=== PATIENT | male | born 1980 ===

== ENCOUNTER 2018-06-27 13:17 | Emergency (ER) | payer SELFPAY ==
[~2018-06-27] VITALS: Ht 167.6 cm; Wt 73.0 kg
[~2018-06-27 13:17] MED LIST: ALBU17AE3 IH; ALBU8.5H4 IH; BUDE10.22 IH; PRD20T PO; SULF1TAB38 PO
--- OUTSIDE RECORDS SUMMARY | 2018-06-27 13:22 | XMS REPORT ---
Author Author TIMOTHY MATHEW Organization [facility] Address [address] [place] [address] Care Team Providers Care Entry Specialist Name Role Phone TIMOTHY MATHEW Unavailable PROBLEMS Type Condition ICD9-CM Code ARZ09-QI Code Onset Dates Condition Status SNOMED Code Problem Allergic rhinitis J30.9 Active 41561213 Problem Tobacco abuse counseling Z71.6 Active 227874883 Problem Tobacco abuse Z72.0 Active 19787480 Problem Alcohol abuse F10.10 Active 55834761 Problem Mild intermittent asthma without complication J45.20 Active 492908115 Problem History of asthma Z87.09 Active 313485195 Problem Substance abuse F19.10 Active 08369866 Problem 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 Active 040572810457816 Problem General medical exam Z00.00 Active 627502435 ALLERGIES No Known Allergies ENCOUNTERS Encounter Location Date Diagnosis [facility] [address] [address] May, Laryngitis J04.0 [facility] [address] [address] May, Mild intermittent asthma without complication J45.20 ; Allergic rhinitis J30.9 ; Alcohol abuse F10.10 ; 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 and Plantar fasciitis M72.2 [facility] [id number] [place] [address]- [address] 13 Mar, 2018 Epigastric pain R10.13 [facility] [address] [address] 07 Mar, 2016 Acute non-recurrent sinusitis, unspecified location J01.90 ; Wheezing R06.2 and Tobacco dependence F17.200 [facility] [address] [address] Sep, Seasonal allergies J30.2 ; Sore throat J02.9 and Strep throat J02.0 [facility] [id number] [place] [address]- 3144 Aug, [facility] [id number] [place] [address]- 33[address] Jul, [facility] [address] [address] Jun, General medical exam Z00.00 ; Substance abuse F19.10 ; Tobacco abuse Z72.0 ; Tobacco abuse counseling Z71.6 ; History of asthma Z87.09 and Allergic rhinitis J30.9 [facility] [id number] [place] [address]- 42[address] Jun, [facility] [address] [address] November, Allergic rhinitis, cause unspecified 477.9 ; Tobacco abuse 305.1 ; Tobacco abuse counseling V65.42 and Wheezing 786.07 [facility] [id number] [place] [address]- 0[address] November, [facility] [id number] [place] [address]- 4191 Oct, [facility] [id number] [place] [address]339- 4017 Oct, [facility] [id number] [place] [address]30- 0[address] 17 Mar, 2014 [facility] [id number] [place] [address]33- 9212 16 Mar, 2014 [facility] [id number] [place] [address] 22034- 9627 16 Mar, 2014 [facility] [id number] [place] [address]80- 12[address] 04 Mar, 2014 [facility] [address] [address] [place] [address] Mar, [facility] [place] [facility] [address] [id number] [place] [address] Feb, [facility] [place] [facility] [address] [id number] [place] [address] 2548 Feb, [facility] [place] [facility] [address] [id number] [place] [address]- 8[address] Feb, [facility] [place] [facility] [address] [id number] [place] [address] 7[address] Feb, [facility] [place] [facility] [address] [id number] [place] [address] 1576 Feb, [facility] [place] [facility] [address] [id number] [place] [address] 5183 Feb, [facility] [place] [facility] [address] [id number] [place] [address]- 7497 Dec, [facility] [place] [facility] [address] [id number] [place] [address] 2967 Dec, [facility] [place] [facility] [address] [id number] [place] [address] 1990 Dec, [facility] [place] [facility] [address] [id number] [place] [address] 18[address] Dec, [facility] [place] [facility] [address] [id number] [place] [address] 3[address] Oct, [facility] [place] [facility] [address] [id number] [place] [address] 34[address] Oct, [facility] [place] [facility] [address] [id number] [place] [address] 3[address] Sep, [facility] [place] [facility] [address] [id number] [place] [address]- 275[address] Sep, [facility] [place] [facility] [address] [id number] [place] [address]- 9192 Sep, [facility] [place] [facility] [address] [id number] [place] [address] 1478 Sep, [facility] [address] [id number] [place] [address] 5[address] Jul, [facility] [address] [id number] [place] [address] Jul, [facility] [address] [id number] [place] [address]- 0512 May, [facility] [address] [id number] [place] [address] 44[address] May, [facility] [place] [facility] [address] [id number] [place] [address]- 3505 Jan, [facility] [address] [id number] [place] [address]- 5[address] Jan, [facility] [address] [id number] [place] [address]- 98[address] Jan, [facility] [address] [id number] [place] [address]- 1536 Jan, [facility] [address] [id number] [place] [address]- 1070 Jan, [facility] [address] [id number] [place] [address]- 3230 Jan, [facility] [place] [facility] [address] [id number] [place] [address]- 4049 Dec, [facility] [place] [facility] [address] [id number] [place] [address]- 3147 November, [facility] [place] [facility] [address] [id number] [place] [address]- 0055 May, [facility] [place] [facility] [address] [id number] [place] [address]- 5755 May, [facility] [place] [facility] [address] [id number], [place] [address]46 May, [facility] [address] [facility] [id number], [place] [address] 2546 May, [facility] [address] [facility] [id number], [place] [address] 2546 Apr, [facility] [address] [facility] [id number], [place] [address]- 25[address] Apr, [facility] [address] [facility] [id number], [place] [address] 2546 Feb, [facility] [address] [facility] [id number], [place] [address] 2546 November, [facility] [address] [facility] [id number], [place] [address]- [address] Dec, IMMUNIZATIONS No Known Immunizations SOCIAL HISTORY Never Assessed REASON FOR VISIT dry throat - x2-3 days - KPacristel MA , couch without production - x4days kPage mA , sinus pressure KPage MA , after coughing has shortness of breath - doesnt feel like he can catch his breath kPage mA PLAN OF CARE Activity Details Follow Up prn Reason: VITAL SIGNS Height 66 in 2018-06-11 Weight 161.3 lbs 2018-06-11 Temperature 97.3 degrees Fahrenheit 2018-06-11 Heart Rate 104 bpm 2018-06-11 Respiratory Rate 20 2018-06-11 Oximetry on room air:98 % 2018-06-11 BMI 26.03 kg/m2 2018-06-11 Blood pressure systolic 108 mmHg 2018-06-11 Blood pressure diastolic 70 mmHg 2018-06-11 MEDICATIONS Medication Instructions Dosage Frequency Start Date End Date Duration Status Pantoprazole Sodium 40 mg Orally Once a day 1 tablet 24h Mar, 90 days Active SudoGest 60 MG Orally every 6 hrs 1 tablet as needed 6h May, 5 days Active Flonase 50 mcg/act Nasally Once a day 1 spray in each nostril 24h May, 30 day(s) Active Zyrtec Allergy 10 MG Orally Once a day 1 tablet 24h 30 day(s) Not- Taking Montelukast Sodium 10 mg Orally Once a day 1 tablet 24h May, 30 day(s) Active Seroquel 50 mg Orally at bedtime as needed for insomnia 1 tablet May, 30 day(s) Active RESULTS No Results PROCEDURES No Known procedures INSTRUCTIONS MEDICATIONS ADMINISTERED No Known Medications MEDICAL (GENERAL) HISTORY Type Description Date Medical History Asthma Surgical History Testicular Contortion 1990
--- OUTSIDE RECORDS SUMMARY | 2018-06-27 13:22 | XMS REPORT ---
Author Author QUINCY LINK Organization [facility] Address [address] [place] [address] Care Team Providers Care Tray Checker Name Role Phone QUINCY LINK Unavailable PROBLEMS Type Condition ICD9-CM Code CJL87-GO Code Onset Dates Condition Status SNOMED Code Problem Allergic rhinitis J30.9 Active 86470344 Problem Tobacco abuse counseling Z71.6 Active 157952123 Problem Tobacco abuse Z72.0 Active 65564545 Problem Alcohol abuse F10.10 Active 88674605 Problem Mild intermittent asthma without complication J45.20 Active 256494620 Problem History of asthma Z87.09 Active 209785168 Problem Substance abuse F19.10 Active 01811713 Problem 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 Active 646112432838676 Problem General medical exam Z00.00 Active 961666404 ALLERGIES No Known Allergies ENCOUNTERS Encounter Location Date Diagnosis [facility] [address] [address] May, Mild intermittent asthma without complication J45.20 ; Allergic rhinitis J30.9 ; Alcohol abuse F10.10 ; 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 [id number] [place] [address] 29 Sep, 2015 Seasonal allergies J30.2 ; Sore throat J02.9 and Strep throat J02.0 [facility] [address] [id number] [address] 11 Aug, 2015 [facility] [id number] [place] [address] 25379- 3465 Jul, [facility] [id number] [place] [address] 81626- 9616 10 Jun, 2015 General medical exam Z00.00 ; Substance abuse F19.10 ; Tobacco abuse Z72.0 ; Tobacco abuse counseling Z71.6 ; History of asthma Z87.09 and Allergic rhinitis J30.9 [facility] [id number] [place] [address] 98871- 5283 Jun, [facility] [id number] [place] [address] 14389- 7113 November, Allergic rhinitis, cause unspecified 477.9 ; Tobacco abuse 305.1 ; Tobacco abuse counseling V65.42 and Wheezing 786.07 [facility] [id number] [place] [address]181- [address] November, [facility] [id number] [place] [address] 57385- 0515 Oct, [facility] [id number] [place] [address] 20309- 9411 Oct, [facility] [address] [place] [address] 60470- 1515 17 Mar, 2014 [facility] [address] [place] [address] 64735- 8967 16 Mar, 2014 [facility] [address] [place] [address] 75317- 5697 16 Mar, 2014 [facility] [id number] [place] [address] 01775- 9340 04 Mar, 2014 [facility] [address] [address]- [address] 04 Mar, 2014 [facility] [id number] [place] [address] 18672- 5361 Feb, [facility] [place] [facility] [address] [id number] [place] [address]- 9390 Feb, [facility] [place] [facility] [address] [id number] [place] [address]- 2955 Feb, [facility] [place] [facility] [address] [id number] [place] [address]- 1847 Feb, [facility] [place] [facility] [address] [id number] [place] [address]- 3946 Feb, [facility] [place] [facility] [address] [id number] [place] [address]- 5329 Feb, [facility] [place] [facility] [address] [id number] [place] [address]- 4730 Dec, [facility] [place] [facility] [address] [id number] [place] [address]- 0282 Dec, [facility] [place] [facility] [address] [id number] [place] [address]- 6902 Dec, [facility] [place] [facility] [address] [id number] [place] [address]- 5918 Dec, [facility] [place] [facility] [address] [id number] [place] [address]- 6386 Oct, [facility] [place] [facility] [address] [id number] [place] [address]- 0018 Oct, [facility] [place] [facility] [address] [id number] [place] [address]- 5996 Sep, [facility] [place] [facility] [address] [id number] [place] [address]- 7924 Sep, [facility] [place] [facility] [address] [id number] [place] [address]- 5754 Sep, [facility] [place] [facility] [address] [id number] [place] [address]- 7117 Sep, [facility] [place] [facility] [address] [id number] [place] [address]- 2581 Jul, [facility] [address] [id number] [place] [address]- 9154 Jul, [facility] [place] [facility] [address] [id number] [place] [address]- 6479 May, [facility] [address] [id number] [place] [address]- 6692 May, [facility] [place] [facility] [address] [id number] [place] [address]- 5428 Jan, [facility] [address] [id number] [place] [address]- 2877 Jan, [facility] [place] [facility] [address] [id number] [place] [address]- 2553 Jan, [facility] [place] [facility] [address] [id number] [place] [address]- 9643 Jan, [facility] [address] [id number] [place] [address]- 9993 Jan, [facility] [place] [facility] [address] [id number] [place] [address]- 5577 Jan, [facility] [address] [id number] [place] [address]- 1730 Dec, [facility] [place] [facility] [address] [id number] [place] [address]- 9693 November, [facility] [place] [facility] [address] [id number] [place] [address]- 3004 May, [facility] [place] [facility] [address] [id number] [place] [address]- 4510 May, [facility] [place] [facility] [address] [id number] [place] [address]- 1636 May, [facility] [place] [facility] [address] [id number] [place] [address]- 7509 May, [facility] [address] [facility] [id number] [address]- 8666 Apr, [facility] [address] [facility] [id number], [place] [address]- 2546 Apr, [facility] [address] [facility] [id number], [place] [address] 2546 Feb, [facility] [address] [facility] [id number], [place] [address] 2546 November, [facility] [address] [facility] [id number] [address]- 3566 Dec, IMMUNIZATIONS No Known Immunizations SOCIAL HISTORY Never Assessed REASON FOR VISIT foot/ear c/o-twooden,RMA, PT is having some pain in his left ear and left foot. started about two weeks ago PLAN OF CARE Activity Details Follow Up prn Reason: VITAL SIGNS Height 66 in 2018-05-13 Weight 163.7 lbs 2018-05-13 Temperature 97.4 degrees Fahrenheit 2018-05-13 Heart Rate 118 bpm 2018-05-13 Respiratory Rate 20 2018-05-13 Oximetry on room air:97 % 2018-05-13 BMI 26.42 kg/m2 2018-05-13 Blood pressure systolic 104 mmHg 2018-05-13 Blood pressure diastolic 78 mmHg 2018-05-13 MEDICATIONS Medication Instructions Dosage Frequency Start Date End Date Duration Status Montelukast Sodium 10 mg Orally Once a day 1 tablet 24h May, 30 day(s) Active Pantoprazole Sodium 40 mg Orally Once a day 1 tablet 24h Mar, 90 days Active Flonase 50 mcg/act Nasally Once a day 1 spray in each nostril 24h May, 30 day(s) Active Seroquel 50 mg Orally at bedtime as needed for insomnia 1 tablet May, 30 day(s) Active Zyrtec Allergy 10 MG Orally Once a day 1 tablet 24h 30 day(s) Active RESULTS No Results PROCEDURES No Known procedures INSTRUCTIONS MEDICATIONS ADMINISTERED No Known Medications MEDICAL (GENERAL) HISTORY Type Description Date Medical History Asthma Surgical History Testicular Contortion 1990
--- OUTSIDE RECORDS SUMMARY | 2018-06-27 13:23 | XMS REPORT | Continuity of Care Document ---
Author Author [facility] Organization [facility] Address Unknown Phone Unavailable Care Team Providers Care Shade Maker Name Role Phone [facility] Insurance Providers Payer Name Policy Number Subscriber Name Relationship Self Pay Annamarie Nicholson Self / Same As Patient Advance Directives Directive Response Recorded Date Advance Directives N 12/15/12 9:47am Problems No Known Problems or Medical conditions. Social History History Response Recorded Date/Time Alcohol Use Denies Use 12/15/12 9:47am Recreational Drug Use N 12/15/12 9:47am Allergies, Adverse Reactions, Alerts Allergen Type Severity Reaction Last Updated No Known Drug Allergies 03/02/11 Medications Medication Dose Units Route Sig Qty Days Albuterol (Albuterol Sulfate Hfa) 8.5 Gm IH Q4H PRN 1 Prednisone 40 Mg PO DAILY 5 Budesonide/Formoterol Fumarate (Symbicort 80-4.5 Mcg Inhaler) 10.2 Gm IH BID Albuterol (Proventil) 1 [place] [facility] UD Response Recorded Date/Time Status not known Unknown Results No Known Relevant Diagnostic Tests, Laboratory Data and/or Discharge Summary. Encounters Encounter Location Date/Time Departed Emergency Room [facility] [place] 11/22 9:41am
--- OUTSIDE RECORDS SUMMARY | 2018-06-27 13:23 | XMS REPORT ---
Author Author PATY TRUONG Organization [employer] Address Unknown Phone Unavailable Care Team Providers Care Building Rigger Name Role Phone PATY TRUONG CP Unavailable Allergies, Adverse Reactions, Alerts Substance Reaction Event Type N.K.D.A. Info Not Available Non Drug Allergy Problems Problem Type Condition Code Onset Dates Condition Status Assessment Tobacco abuse counseling Z71.6 Active Assessment Substance abuse F19.10 Active Assessment Tobacco abuse Z72.0 Active Assessment Allergic rhinitis J30.9 Active Assessment History of asthma Z87.09 Active Problem Substance abuse F19.10 Active Problem Tobacco abuse Z72.0 Active Problem General medical exam Z00.00 Active Problem Allergic rhinitis J30.9 Active Assessment General medical exam Z00.00 Active Problem Tobacco abuse counseling Z71.6 Active Problem History of asthma Z87.09 Active Medications Medication Code System Code Instructions Start Date End Date Status Dosage Fluticasone Propionate [facility] [address]-85 50 MCG/ACT Nasally Once a day Jun 21, 2015 1 spray in each nostril Ventolin HFA [facility] [address]-78 90 MCG/ACT Inhalation every 4 hrs Jun 21, 2015 2 puffs as needed Cetirizine HCl [facility] [address]-44 10 MG Orally Jun 21, 2015 as directed Symbicort [facility] [address]-53 160-4.5 MCG/ACT Inhalation Twice a day Jun 21, 2015 2 puffs Procedures Procedure Coding System Code Date Office Visit, Est Pt., Level 3 CPT-4 76247 Jun 21, 2015 Vital Signs Date/Time: Jun 21, 2015 Temperature 97.7 F Weight 150.3 lbs Height 66 in BMI 24.26 Index Blood Pressure Diastolic 68 mmHg Blood Pressure Systolic 116 mmHg Cardiac Monitoring Heart Rate 74 bpm Results No Known Results Summary Purpose [employer] Submission
--- OUTSIDE RECORDS SUMMARY | 2018-06-27 13:23 | XMS REPORT | Continuity of Care Document ---
Author Author [facility] Address Unknown Phone Unavailable Allergies There is no data. Medications There is no data. Problems Date Dx Coded Attending Type Code Diagnosis Diagnosed By 12/26/2010 305.1 NONDEPENDENT TOBACCO USE DISORDER 12/26/2010 473.9 Unspecified Sinusitis (chronic) 12/26/2010 493.90 ASTHMA UNSPECIFIED 12/26/2010 305.1 NONDEPENDENT TOBACCO USE DISORDER 12/26/2010 473.9 Unspecified Sinusitis (chronic) 12/26/2010 493.90 ASTHMA UNSPECIFIED 12/26/2010 MAYRA RODAS APRN R 305.1 NONDEPENDENT TOBACCO USE DISORDER 12/26/2010 MAYRA RODAS APRN R 473.9 Unspecified Sinusitis (chronic) 12/26/2010 SHERRI RODAS APRNIA R 493.90 ASTHMA UNSPECIFIED 12/26/2010 DEBORAH TILLMAN APRNCY N 305.1 NONDEPENDENT TOBACCO USE DISORDER 12/26/2010 DEBORAH TILLMAN APRNCY N 473.9 Unspecified Sinusitis (chronic) 12/26/2010 JOSH WHITLEY APRN AMANDA N 493.90 ASTHMA UNSPECIFIED 12/26/2010 RAMESH NGUYEN DOA K 305.1 NONDEPENDENT TOBACCO USE DISORDER 12/26/2010 NGUYEN DO KOREY K 473.9 Unspecified Sinusitis (chronic) 12/26/2010 NGUYEN DO KOREY K 493.90 ASTHMA UNSPECIFIED 12/26/2010 NGUYEN DO KOREY K 305.1 NONDEPENDENT TOBACCO USE DISORDER 12/26/2010 NGUYEN DO KOREY K 473.9 Unspecified Sinusitis (chronic) 12/26/2010 NGUYEN DO KOREY K 493.90 ASTHMA UNSPECIFIED 12/26/2010 CADY ELMORE, MAXIMUS Cruz 305.1 NONDEPENDENT TOBACCO USE DISORDER 12/26/2010 CADY ELMORE, MAXIMUS Cruz 473.9 Unspecified Sinusitis (chronic) 12/26/2010 CADY ELMORE, MAXIMUS Cruz 493.90 ASTHMA UNSPECIFIED 12/02/2011 V65.42 COUNSELING - SMOKING CESSATION 12/02/2011 V65.42 COUNSELING - SMOKING CESSATION 12/02/2011 MAYRA RODAS APRN R V65.42 COUNSELING - SMOKING CESSATION 12/02/2011 JOSH GUTIERREZ LYONS, AMANDA N V65.42 COUNSELING - SMOKING CESSATION 12/02/2011 NGUYEN DO KOREY K V65.42 COUNSELING - SMOKING CESSATION 12/02/2011 WENDY JULIAN KOREY K V65.42 COUNSELING - SMOKING CESSATION 12/02/2011 MAXIMUS LAZAR PHD V65.42 COUNSELING - SMOKING CESSATION 12/21/2012 461.9 SINUSITIS ACUTE 12/21/2012 477.9 RHINITIS 12/21/2012 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 12/21/2012 MAYRA RODAS APRN R 461.9 SINUSITIS ACUTE 12/21/2012 MAYRA RODAS APRN R 477.9 RHINITIS 12/21/2012 MAYRA RODAS APRN R 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 12/21/2012 JOSH WHITLEY APRN, AMANDA N 461.9 SINUSITIS ACUTE 12/21/2012 MORENOCAITLYN WHITLEY APRN, AMANDA N 477.9 RHINITIS 12/21/2012 MORENO CLAUDIANIKKY LYONS, AMANDA N 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 12/21/2012 RAMESH NGUYEN DOA K 461.9 SINUSITIS ACUTE 12/21/2012 RAMESH NGUYEN DOA K 477.9 RHINITIS 12/21/2012 RAMESH NGUYEN DOA K 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 12/21/2012 MAXIMUS LAZAR PHD 461.9 SINUSITIS ACUTE 12/21/2012 MAXIMUS LAZAR PHD 477.9 RHINITIS 12/21/2012 MAXIMUS LAZAR PHD 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 01/21/2013 MAYRA RODAS APRN R V67.59 OTHER FOLLOW-UP EXAMINATION 01/21/2013 AMANDA TILLMAN APRN N V67.59 OTHER FOLLOW-UP EXAMINATION 01/21/2013 KOREY NGUYEN DO K V67.59 OTHER FOLLOW-UP EXAMINATION 01/21/2013 MAXIMUS LAZAR PHD V67.59 OTHER FOLLOW-UP EXAMINATION 01/29/2013 RODAS RELAY SHOP TESTER, MAYRA R 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03 VOMITING ALONE 02/07/2013 AMANDA TILLMAN APRN N 787.03 VOMITING ALONE 02/07/2013 KOREY NGUYEN DO 787.03 VOMITING ALONE 02/07/2013 MAXIMUS LAZAR PHD 787.03 VOMITING ALONE 05/18/2013 MAYRA RODAS APRN R 786.2 COUGH 05/18/2013 AMANDA TILLMAN APRN N 786.2 COUGH 05/18/2013 KOREY NGUYEN DO K 786.2 COUGH 05/18/2013 MAXIMUS LAZAR PHD 786.2 COUGH 07/25/2013 AMANDA TILLMAN APRN N 487.1 INFLUENZA WITH OTHER RESPIRATORY MANIFESTATIONS 07/25/2013 KOREY NGUYEN DO 487.1 INFLUENZA WITH OTHER RESPIRATORY MANIFESTATIONS 07/25/2013 MAXIMUS LAZAR PHD 487.1 INFLUENZA WITH OTHER RESPIRATORY MANIFESTATIONS 09/30/2013 KOREY NGUYEN DO 719.45 PAIN IN JOINT INVOLVING PELVIC REGION AND THIGH 09/30/2013 KOREY NGUYEN DO 789.30 ABDOMINAL OR PELVIC SWELLING MASS OR LUMP UNSPECIFIED SITE 09/30/2013 KOREY NGUYEN DO 848.8 OTHER SPECIFIED SITES OF SPRAINS AND STRAINS 09/30/2013 MAXIMUS LAZAR PHD 719.45 PAIN IN JOINT INVOLVING PELVIC REGION AND THIGH 09/30/2013 MAXIMUS LAZAR PHD 789.30 ABDOMINAL OR PELVIC SWELLING MASS OR LUMP UNSPECIFIED SITE 09/30/2013 MAXIMUS LAZAR PHD 848.8 OTHER SPECIFIED SITES OF SPRAINS AND STRAINS 02/17/2014 MAXIMUS LAZAR PHD 296.32 MO DEPRESSIVE RECURRENT MODERATE Procedures Code Description [place] [address] OXIMETRY 12/21/2012 23967 INFLUENZA A & B (IN-HOUSE) 07/25/2013 14028 XRAY HIP LEFT UNILATERAL MIN 2 VIEWS 09/30/[address] EXTREMITY, LOWER, LEFT W / AND W/O CONTRAST 09/30/2013 31431 PSYCH DIAGNOSTIC EVALUATION 02/17/2014 Results There is no data. Encounters ACCT No. Visit Date/Time Discharge Status Pt. Type Provider Facility Loc./Unit Complaint [id number] 02/17/2014 13:50:00 02/17/2014 23:59:59 CLS Outpatient MAXIMUS LAZAR PHD [id number] 09/30/2013 13:59:00 09/30/2013 23:59:59 CLS Outpatient KOREY NGUYEN DO [id number] 07/25/2013 12:38:00 07/25/2013 23:59:59 CLS Outpatient AMANDA TILLMAN APRN [id number] 05/18/2013 14:03:00 05/18/2013 23:59:59 CLS Outpatient MAYRA RODAS APRN [id number] 12/02/2011 10:38:00 12/02/2011 23:59:59 CLS Outpatient KOREY NGUYEN DO [id number] 12/21/2012 09:51:00 Document Registration [id number] 05/13/2012 09:37:00 Document Registration [id number] 10/03/2013 08:57:00 10/03/2013 23:59:59 CLS Outpatient [id number] 07/24/2013 09:33:00 07/24/2013 10:50:00 DIS Emergency [id number] 02/01/2013 09:45:00 02/01/2013 23:59:59 CLS Outpatient [id number] 01/19/2013 16:26:00 01/19/2013 18:18:00 DIS Emergency [id number] 12/15/2012 09:41:00 12/15/2012 10:25:00 DIS Emergency [id number] 06/11/2018 10:00:00 06/11/2018 23:59:59 CLS Outpatient PATY [facility]UONGLeo [facility]
--- OUTSIDE RECORDS SUMMARY | 2018-06-27 13:23 | XMS REPORT ---
Author KOREY Howell [facility] [employer] Address Unknown Phone Unavailable Care Team Providers Care Brokerage Purchase And Sale Clerk Name Role Phone KOREY NGUYEN CP Unavailable Allergies No Known Allergies Problems Problem Type Condition Code Onset Dates Condition Status Problem Abdominal or pelvic swelling, mass or lump, unspecified site 789.30 Active Problem Pain in soft tissues of limb 729.5 Active Problem Other specified sites of sprains and strains 848.8 Active Problem Major depressive disorder, recurrent episode, moderate 296.32 Active Problem Acute sinusitis, unspecified 461.9 Active Problem Cough 786.2 Active Problem Other follow-up examination V67.59 Active Problem Influenza with other respiratory manifestations 487.1 Active Problem Allergic rhinitis, cause unspecified 477.9 Active Problem Lateral epicondylitis of elbow 726.32 Active Problem Vomiting alone 787.03 Active Problem Counseling on substance use and abuse V65.42 Active Problem Pain in joint, pelvic region and thigh 719.45 Active Medications Medication Code System Code Instructions Start Date End Date Status Dosage Ventolin HFA [facility] [address]-74 90 mcg/actuation May 18, 2013 2 puffs by Inhalation route 4 times per day PRN Use prn coughing/wheezing for rescue only Results No Known Results Summary Purpose eClinicalWorks Submission
--- OUTSIDE RECORDS SUMMARY | 2018-06-27 13:23 | XMS REPORT ---
Author Author MAYRA RODAS Organization [facility] Address [address] [place] [address] Care Team Providers Care Client Care Representative Name Role Phone MAYRA RODAS Unavailable PROBLEMS Type Condition ICD9-CM Code QBT03-FT Code Onset Dates Condition Status SNOMED Code Assessment Tobacco dependence F17.200 Mar, Active 18624089 Assessment Acute non-recurrent sinusitis, unspecified location J01.90 Mar, Active 49630303 Assessment Wheezing R06.2 Mar, Active 42606205 Problem General medical exam Z00.00 Active 803549215 Problem Substance abuse F19.10 Active 96326298 Problem History of asthma Z87.09 Active 811891069 Problem Allergic rhinitis J30.9 Active 49890159 Problem Tobacco abuse Z72.0 Active 49322871 Problem Tobacco abuse counseling Z71.6 Active 821175261 ALLERGIES Substance Reaction Event Type Date Status N.K.D.A. Unknown Non Drug Allergy Mar, Unknown SOCIAL HISTORY No smoking Hx information available PLAN OF CARE VITAL SIGNS Height 66 in 2016-03-19 Weight 154.0 lbs 2016-03-19 Heart Rate 80 bpm 2016-03-19 Respiratory Rate 20 2016-03-19 BMI 24.85 kg/m2 2016-03-19 Blood pressure systolic 118 mmHg 2016-03-19 Blood pressure diastolic 80 mmHg 2016-03-19 MEDICATIONS Medication Instructions Dosage Frequency Start Date End Date Duration Status Doxycycline Hyclate 100 MG Orally every 12 hrs 1 capsule 12h Mar, Mar, 10 days Active Ventolin HFA 90 MCG/ACT Inhalation every 4 hrs prn rescue onlyl 2 puffs as needed Jun, Active Symbicort 160-4.5 MCG/ACT Inhalation Twice a day for maintenance 2 puffs Mar, Active RESULTS No Results PROCEDURES Procedure Date Ordered Related Diagnosis Body Site Office Visit, Est Pt., Level 3 Mar 19, 2016 DEPO MEDROL 80 MG/ML Mar 19, 2016 DEXAMETHASONE 4MG/ML (PER 1 MG) Mar 19, 2016 THER/PROPH/DIAG INJ, SC/IM Mar 19, 2016 IMMUNIZATIONS Vaccine Route Administration Date Status DEXAMETHASONE 4MG/ML (PER 1 MG) IM Intramuscular Mar 19, 2016 Administered DEPO MEDROL 80 MG/ML IM Intramuscular Mar 19, 2016 Administered
--- OUTSIDE RECORDS SUMMARY | 2018-06-27 13:23 | XMS REPORT ---
Author Author PATY TRUONG Organization [employer] Address Unknown Phone Unavailable Care Team Providers Care Mother Helper Name Role Phone PATY TRUONG CP Unavailable Allergies No Known Allergies Problems Problem Type Condition Code Onset Dates Condition Status Problem Substance abuse F19.10 Active Problem Tobacco abuse Z72.0 Active Problem General medical exam Z00.00 Active Problem Allergic rhinitis J30.9 Active Problem Tobacco abuse counseling Z71.6 Active Problem History of asthma Z87.09 Active Medications No Known Medications Results No Known Results Summary Purpose eClinicalWorks Submission
--- OUTSIDE RECORDS SUMMARY | 2018-06-27 13:23 | XMS REPORT | Continuity of Care Document ---
Author Author [facility] Organization [facility] Address Unknown Phone Unavailable Care Team Providers Care Optimization Specialist Name Role Phone [facility] OF Insurance Providers Payer Name Policy Number Subscriber Name Relationship Self Pay Annamarie Nicholson 01 Self / Same As Patient Advance Directives Directive Response Recorded Date Advance Directives N 01/19/13 4:49pm Problems No Known Problems or Medical conditions. Social History History Response Recorded Date/Time Alcohol Use Regular Use 01/19/13 4:49pm Recreational Drug Use Y POT 01/19/13 4: 49pm Allergies, Adverse Reactions, Alerts Allergen Type Severity Reaction Last Updated No Known Drug Allergies 03/02/11 Medications Medication Dose Units Route Sig Qty Days Trimethoprim/Sulfamethoxazole (Bactrim Ds) 1 Ea PO BID 20 Albuterol (Albuterol Sulfate Hfa) 8.5 Gm IH Q4H PRN 1 Budesonide/Formoterol Fumarate (Symbicort 80-4.5 Mcg Inhaler) 10.2 Gm IH BID Albuterol (Proventil) 1 Blanco IH UD Prednisone 40 Mg PO DAILY 5 Immunizations Name Given Type DTaP 01/19/13 A Response Recorded Date/Time Status not known Unknown Results No Known Relevant Diagnostic Tests, Laboratory Data and/or Discharge Summary. Encounters Encounter Location Date/Time Departed Emergency Room [facility] 04/24 4:26pm
--- OUTSIDE RECORDS SUMMARY | 2018-06-27 13:23 | XMS REPORT ---
Author Author QUINCY LINK Organization [facility] Address [address] [place] [address] Care Team Providers Care Records Management Analyst Name Role Phone QUINCY LINK Unavailable PROBLEMS Type Condition ICD9-CM Code TVF97-UQ Code Onset Dates Condition Status SNOMED Code Problem Tobacco abuse counseling Z71.6 Active 871426151 Problem Tobacco abuse Z72.0 Active 68000556 Problem Substance abuse F19.10 Active 49699019 Problem General medical exam Z00.00 Active 227199122 Problem Allergic rhinitis J30.9 Active 55452787 Problem History of asthma Z87.09 Active 205759560 ALLERGIES No Known Allergies ENCOUNTERS Encounter Location Date Diagnosis [facility] [id number] [place] [address] 14065- [address]255 13 Mar, 2018 Epigastric pain R10.13 [facility] [id number] [place] [address] 40609- 5869 07 Mar, 2016 Acute non-recurrent sinusitis, unspecified location J01.90 ; Wheezing R06.2 and Tobacco dependence F17.200 [facility] [id number] [place] [address] -3092 Sep, Seasonal allergies J30.2 ; Sore throat J02.9 and Strep throat J02.0 [facility] [id number] [place] [address] 08716- 1365 Aug, [facility] [id number] [place] [address] 52711- 3521 Jul, [facility] [id number] [place] [address] 32579- 6855 10 Jun, 2015 General medical exam Z00.00 ; Substance abuse F19.10 ; Tobacco abuse Z72.0 ; Tobacco abuse counseling Z71.6 ; History of asthma Z87.09 and Allergic rhinitis J30.9 [facility] [id number] [place] [address] 77811- 0413 Jun, [facility] [id number] [place] [address] 38654- 9311 November, Allergic rhinitis, cause unspecified 477.9 ; Tobacco abuse 305.1 ; Tobacco abuse counseling V65.42 and Wheezing 786.07 [facility] [id number] [place] [address] 89721- 2202 November, [facility] [id number] [place] [address] 09410- 4387 Oct, [facility] [id number] [place] [address] 32380- 0305 Oct, [facility] [id number] [place] [address] 69118- 2023 17 Mar, 2014 [facility] [id number] [place] [address] 62876- 2043 Mar, [facility] [id number] [place] [address] 51565- 4191 Mar, [facility] [id number] [place] [address] 57715- 4157 Mar, [facility] [address] [place] [address] 96672- 5192 Mar, [facility] [address] [address] Feb, [facility] [id number] [place] [address] 31505- 6249 Feb, [facility] [id number] [place] [address] 31669- 9972 Feb, [facility] [id number] [place] [address] 12152- 8652 Feb, [facility] [place] [facility] [address] [id number] [place] [address] Feb, [facility] [place] [facility] [address] [id number] [place] [address] 0467 Feb, [facility] [place] [facility] [address] [id number] [place] [address] 5256 Dec, [facility] [place] [facility] [address] [id number] [place] [address] 5020 Dec, [facility] [place] [facility] [address] [id number] [place] [address] Dec, [facility] [place] [facility] [address] [id number] [place] [address] 1208 Dec, [facility] [place] [facility] [address] [id number] [place] [address] 7744 Oct, [facility] [place] [facility] [address] [id number] [place] [address] 1025 Oct, [facility] [place] [facility] [address] [id number] [place] [address]- 6561 Sep, [facility] [place] [facility] [address] [id number] [place] [address]- 6820 Sep, [facility] [place] [facility] [address] [id number] [place] [address] 4116 Sep, [facility] [place] [facility] [address] [id number] [place] [address]- 2768 Sep, [facility] [place] [facility] [address] [id number] [place] [address]- 8644 Jul, [facility] [place] [facility] [address] [id number] [place] [address]- 0973 Jul, [facility] [place] [facility] [address] [id number] [place] [address]- 2546 May, [facility] [place] [facility] [address] [id number] [place] [address] 9250 May, [facility] [place] [facility] [address] [id number] [place] [address]- 9532 Jan, [facility] [place] [facility] [address] [id number] [place] [address]- 4258 Jan, [facility] [place] [facility] [address] [id number] [place] [address]- 6853 Jan, [facility] [place] [facility] [address] [id number] [place] [address]- 0791 Jan, [facility] [place] [facility] [address] [id number] [place] [address]- 9583 Jan, [facility] [place] [facility] [address] [id number] [place] [address]- 2244 Jan, [facility] [place] [facility] [address] [id number] [place] [address]- 3404 Dec, [facility] [place] [facility] [address] [id number] [place] [address]- 3129 November, [facility] [place] [facility] [address] [id number] [place] [address]- 9315 May, [facility] [place] [facility] [address] [id number] [place] [address]- 6114 May, [facility] [place] [facility] [address] [id number] [place] [address]- 5839 May, [facility] [place] [facility] [address] [id number] [place] [address]- 4040 May, [facility] [place] [facility] [address] [id number] [place] [address]- 9138 Apr, [facility] [place] [facility] [address] [id number] [place] [address]- 0294 Apr, [facility] [place] [facility] [address] [id number] [place] [address]- 4589 Feb, [facility] [place] [facility] [address] [facility] [id number] [place] [address]- [address] November, [facility] [address] [facility] [id number] [place] [address]- [address]74 Dec, IMMUNIZATIONS No Known Immunizations SOCIAL HISTORY Never Assessed REASON FOR VISIT Abdominal pain-phyllisnemoSARAH, patient complains about having some pressure in stomach, it builds up to his throat and into his back., started about two months ago PLAN OF CARE Activity Details Follow Up prn Reason: VITAL SIGNS Height 66 in 2018-03-25 Weight 162.8 lbs 2018-03-25 Temperature 98.1 degrees Fahrenheit 2018-03-25 Heart Rate 124 bpm 2018-03-25 Respiratory Rate 20 2018-03-25 Oximetry on room air:97 % 2018-03-25 BMI 26.27 kg/m2 2018-03-25 Blood pressure systolic 122 mmHg 2018-03-25 Blood pressure diastolic 82 mmHg 2018-03-25 MEDICATIONS Medication Instructions Dosage Frequency Start Date End Date Duration Status Zyrtec Allergy 10 MG Orally Once a day 1 tablet 24h 30 day(s) Active Pantoprazole Sodium 40 mg Orally Once a day 1 tablet 24h Mar, 90 days Active Sucralfate 1 GM Orally 4 times a day 1 tablet before meals and at bedtime 6h Mar, Apr, 18 days Active RESULTS No Results PROCEDURES No Known procedures INSTRUCTIONS MEDICATIONS ADMINISTERED No Known Medications MEDICAL (GENERAL) HISTORY Type Description Date Medical History Asthma Surgical History Testicular Contortion 1990
--- OUTSIDE RECORDS SUMMARY | 2018-06-27 13:23 | XMS REPORT ---
Author Author HAZEL OCONNOR Organization [employer] Address Unknown Phone Unavailable Care Team Providers Care Senior Manufacturing Technician Name Role Phone HAZEL OCONNOR CP Unavailable Allergies No Known Allergies Problems [...]
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
[2018-06-27 15:32] VITALS: BP 130/101
== END 2018-06-27 15:32 | disposition home or self-care (01) ==
LOC: EDUNIT# 13:17 → ER 13:19
DX: S00.12XA Contusion of left eyelid and periocular area, initial encounter (principal); S00.11XA Contusion of right eyelid and periocular area, initial encounter; J45.909 Unspecified asthma, uncomplicated; R40.2142 Coma scale, eyes open, spontaneous, at arrival to emergency department; R40.2252 Coma scale, best verbal response, oriented, at arrival to emergency department; R40.2362 Coma scale, best motor response, obeys commands, at arrival to emergency department; Z79.51 Long term (current) use of inhaled steroids; Y04.0XXA Assault by unarmed brawl or fight, initial encounter; Y92.149 Unspecified place in prison as the place of occurrence of the external cause
CPT/HCPCS: 70486